=== PATIENT | female | born 1960 | race Caucasian/White ===

== ENCOUNTER 2023-03-25 12:09 | Day surgery (SDC) | payer OTHER, MEDICAID ==
[2023-03-24 14:16] VITALS: BMI 38.0
[2023-03-25] MEDS ORDERED: fentaNYL 50 mcg/mL 1 mL Vial ONE ×2 (14:01→14:34)
[2023-03-25] MEDS ORDERED: Midazolam HCl 2 mg/2 ml Vial ONE ×2 (14:02→14:14)
[2023-03-25] MEDS ORDERED: Esmolol 100 MG/10 ML VIAL ONE (14:08)
[2023-03-25] MEDS ORDERED: Labetalol HCl 100 MG/20 ML VIAL ONE (14:08)
[2023-03-25] MEDS ORDERED: Ketamine 50 MG/ML (10ML VIAL) ONE (14:14)
== END 2023-03-25 15:51 | disposition home or self-care (01) ==
LOC: SDC 12:09
PROVIDERS: ATTEND Internal Medicine Gastroenterology
PROC: 0DBK8ZZ Excision of Ascending Colon, Via Natural or Artificial Opening Endoscopic (ICD-10-PCS; principal; 2023-03-25)
PROC: 0DBN8ZZ Excision of Sigmoid Colon, Via Natural or Artificial Opening Endoscopic (ICD-10-PCS; 2023-03-25)
PROC: 0DBH8ZZ Excision of Cecum, Via Natural or Artificial Opening Endoscopic (ICD-10-PCS; 2023-03-25)
DX: D12.0 Benign neoplasm of cecum (principal); D12.5 Benign neoplasm of sigmoid colon; K57.30 Diverticulosis of large intestine without perforation or abscess without bleeding; K64.8 Other hemorrhoids; K62.89 Other specified diseases of anus and rectum; F41.9 Anxiety disorder, unspecified; J45.909 Unspecified asthma, uncomplicated; F32.A Depression, unspecified; K21.9 Gastro-esophageal reflux disease without esophagitis; E78.2 Mixed hyperlipidemia; Z90.710 Acquired absence of both cervix and uterus; Z90.49 Acquired absence of other specified parts of digestive tract; Z88.2 Allergy status to sulfonamides; Z88.5 Allergy status to narcotic agent; Z79.899 Other long term (current) drug therapy
CPT/HCPCS: 45385; J3010; 88305; J2250